=== PATIENT | female | born 1990 | race Hispanic/Latino ===

== ENCOUNTER 2024-08-13 17:16 | Emergency (ER) | payer OTHER, SELFPAY ==
[2024-08-13 17:19] VITALS: BP 113/66
--- NOTE | 2024-08-13 18:41 | ED.GENMED ---
History of Present Illness
General
Chief Complaint: Musculo-Skeletal Complaint
Source: patient
Time Seen by Provider: 08/13/24 18:26
History of Present Illness
History of Present Illness:
33-year-old female presenting to the emergency department for evaluation of right foot pain that started after she excellently tripped while walking and tripped over her own pant leg. Patient now with increased pain and swelling to the lateral
aspect of the right foot. Increased pain with ambulation. No other injuries sustained. Denies any previous history of injury or surgery.
Past History
Past History
ED Past Medical History: Psychiatric
ED Past Surgical History: None
Social History
Tobacco: Non-smoker
Alcohol: None
Drug: None
Personal:
Living: with family
Review of Systems
Review of Systems
All Other Systems: ROS reviewed and negative except as documented in HPI and ROS
Phy Exam
Physical Exam
Physical Exam:
GENERAL: Alert , in no apparent distress, tearful and upset
EYE: conjunctiva clear
Head: Normocephalic atraumatic
NECK: Supple,
ENT: mmm.
LUNGS: no acute respiratory distress
NEUROLOGICAL: Alert and oriented
SKIN: Warm and dry, skin intact.
MUSCULOSKELETAL: Right lower extremity: Mild to moderate soft tissue swelling along the lateral aspect of the right foot with tenderness directly over the mid fifth metatarsal. Easily palpable pedal and tibial pulse. Cap refill less than 2
seconds. Sensation grossly intact to light touch. No pain along the medial lateral malleolus or proximal tib-fib area.
PSYCH: Normal and appropriate interaction.
Scores
Heart Failure Risk
Heart Failure Risk Score: Not Applicable
Heart Score for Chest Pain Patients
STEMI patient?: Not applicable
Withdrawal Assessment of Alcohol
Withdrawal Assessment Completed?: Not applicable
Course
Orders/Labs/Results
Orders:
Orders
08/13/24 17:22
CR Ankle - Right Min 3 Views * Urgent
Comment:
Reason For Exam: fall, injury
CR Foot - Right Min 3 Views Urgent
Comment:
Reason For Exam: Fall, injury
08/13/24 18:39
Crutches-Treatment ONCE
Ortho Boot Right- Treatment ONCE
Short or tall?: Short
Ibuprofen [Motrin] 600 mg PO NOW STA
Vital Signs
Initial and Last Documented VS:
Initial Vital Signs
Temp Pulse Resp BP Pulse Ox
98.2 F 83 18 113/66 100
08/13/24 17:19 08/13/24 17:19 08/13/24 17:19 08/13/24 17:19 08/13/24 17:19
Last Documented Vital Signs
Temp Pulse Resp BP Pulse Ox
98.2 F 84 16 114/70 100
08/13/24 17:19 08/13/24 18:58 08/13/24 18:58 08/13/24 18:58 08/13/24 18:58
MDM/Problems Addressed
Differential Diagnosis Includes:
Sprain, fracture, contusion
MDM/Problems Addressed:
33-year-old female presenting to the ER for evaluation of right foot injury sustained an accidental fall. X-ray of the foot and ankle had been ordered in triage and reveals 1/[address] patient in an orthopedic boot as she
ultimately declined a splint. Advised NSAIDs/Tylenol as needed for pain. Short-term prescription for Percocet sent to patient's pharmacy. Patient aware of return precautions to the ER. Information for orthopedics provided.
*Radiology
Radiology exam reviewed: preliminary read by ED provider (Fifth metatarsal fracture)
*Pulse Oximetry
Patient hypoxic: no
*Critical Care Note
Total Time (30-74mins, 75-104mins- exclusive of procedures): Not Applicable
ED Attending Note
-
Portions of this chart may have been created with voice recognition software.� Occasional wrong word or��sound alike� substitutions may have occurred due to the inherent limitations of voice recognition software.
Discharge Plan
Departure
Patient Disposition: Home (Routine Discharge)
Date of Disposition: 08/13/24
Time of Disposition: 18:41
Patient with high blood pressure during this ER visit?: No
Discharge Problem:
Fracture of fifth metatarsal bone of right foot
Instructions: Foot Fracture ED
Prescriptions:
New
oxycodone-acetaminophen [Percocet] 5-325 mg tablet
1 tab PO Q6HPRN PRN (Reason: pain) Qty: 6 0RF
No Action
prenat.vits,eloise,ohs-fctp-alufc Tablet
1 tab PO DAILY
sennosides-docusate sodium [Stool Softener-Stimulant Laxat] 8.6-50 mg Tablet
1 tab PO DAILYPRN PRN (Reason: constipation) Qty: 0 0RF
ibuprofen 600 mg Tablet
600 mg PO Q6HPRN PRN (Reason: moderate pain/cramps) 10 Days Qty: 40 0RF
Referrals:
Kristine Kovacs MD [Family Provider] -
Lenny King DPM [Active] - (Please call for appointment)
Interventions
Interventions:
*Risk Screen - Suicide Last Done: 08/13/24 17:19
*General Assessment Last Done: 08/13/24 18:58
*Neglect/Abuse Screening Last Done: 08/13/24 17:19
*ED COVID-19 Vaccine History Last Done: 08/13/24 17:19
*Nursing Disposition Last Done: 08/13/24 18:58
ED-Musculoskeletal Assessment Last Done: 08/13/24 17:52
Discharge Date and Time
Discharge Date/Time: 08/13/24 19:02
Print Language: TONGAN
[2024-08-13] MEDS: MOTRIN 600 MG PO (18:56)
[2024-08-13 18:58] VITALS: BP 114/70
== END 2024-08-13 19:02 | disposition home or self-care (01) ==
LOC: EMR 17:16
PROVIDERS: EMERGENCY PHYSICIAN Emergency Medicine; FAMILY PHYSICIAN Emergency Medicine
DX: S92.351A Displaced fracture of fifth metatarsal bone, right foot, initial encounter for closed fracture (principal); W01.0XXA Fall on same level from slipping, tripping and stumbling without subsequent striking against object, initial encounter
CPT/HCPCS: 99283; 73610; 73630